=== PATIENT | female | born 1990 | race Caucasian/White ===

== ENCOUNTER 2018-04-01 09:37 | Emergency (ER) | payer BC ==
[~2018-04-01] VITALS: Ht 144.8 cm; Wt 60.3 kg
[2018-04-01 09:40] VITALS: BP 124/74
--- NOTE | 2018-04-01 10:02 | ED.ADGEN ---
Adult General Chief Complaint Chief Complaint "My dog jumped onto my stomach at 5:30 this morning and I'm just worried something happened to the baby" HPI HPI Patient is a 28 year old female who presents with suprapubic abdominal pain that started at 5:30 AM after her pit bull jumped onto her stomach. She also admits to associated nausea. She states that she is getting very anxious because she has had 2 miscarriages in the past. She denies any fevers, chills, dysuria, flank pain, right lower quadrant pain, anorexia, vomiting, chest pain, shortness of breath, pleuritic pain, rashes. Review of Systems Review of Systems All other systems were reviewed and found to be within normal limits, except as documented in this note. Family History Family History noncontributory Allergies Allergies Allergies Coded Allergies Type Severity Reaction Last Updated Verified latex Allergy Intermediate 04/01/18 Yes Physical Exam Physical Exam GENERAL: Awake, alert, no acute distress HEAD/EYES: Normocephalic, EOMI ENT Airway patent, mucous membranes moist NECK: Supple, no meningismus, no swelling RESP: No respiratory distress, symmetrical expansion CV: Normal peripheral perfusion ABD/GI: Non distended, nontender to palpation in the right lower quadrant, negative Carroll sign, no rebound, no tenderness SKIN: Warm, dry NEURO: Normal motor observed PSYCH: Cooperative, appropriate affect, anxious appearing EKG EKG [] Radiology/Procedures Radiology/Procedures Bedside ultrasound performed and interpreted by me reveals movement within the uterus as well as heartbeat present at around 160 bpm Patient states that she feels much better just knowing that the heart is seen We discussed that we do not feel there is an indication for labs or urinalysis. She states that she will follow-up with [facility]. Course & Med Decision Making Course & Med Decision Making Pertinent Labs and Imaging studies reviewed. (See chart for details) [] Final Impression Final Impression Abdominal pain in Dragon Disclaimer Dragon Disclaimer This electronic medical record was generated, in whole or in part, using a voice recognition dictation system. ANGELINA CESAR DO Apr 01, 2018 10:02
== END 2018-04-01 10:08 | disposition home or self-care (01) ==
LOC: ER 09:37
DX: O26.891 Other specified pregnancy related conditions, first trimester (principal); R10.31 Right lower quadrant pain; Z3A.10 10 weeks gestation of pregnancy; Z91.040 Latex allergy status
CPT/HCPCS: 99284

== ENCOUNTER 2018-06-05 12:39 | Emergency (ER) | payer BC ==
[2018-06-05 13:00] VITALS: BP 104/68
--- NOTE | 2018-06-05 13:42 | PHYS DOC ---
Past History Past Medical History: No Pertinent History Past Surgical History: Other Alcohol Use: None Drug Use: None Adult General Chief Complaint Chief Complaint: VAGINAL PROBLEM HPI HPI 28-year-old female 19 weeks presents with 2 day history of vaginal itching and discharge. The patient was recently treated for UTI with Keflex. She states that she started to have itching and a thick whitish discharge yesterday and it has increased significantly today. The itching is very intense. Patient has not had a yeast infection in the past. She was unsure how she could treat this and she is and she wanted make sure her urinary tract infection was resolved. She denies dysuria, urinary frequency, fever or chills. She has a monogamous relationship. Review of Systems Review of Systems Constitutional: Denies fever or chills [] Eyes: Denies change in visual acuity, redness, or eye pain [] HENT: Denies nasal congestion or sore throat [] Respiratory: Denies cough or shortness of breath [] Cardiovascular: No additional information not addressed in HPI [] GI: Denies abdominal pain, nausea, vomiting, bloody stools or diarrhea [] : Vaginal pruritus and thick discharge[] Musculoskeletal: Denies back pain or joint pain [] Integument: Denies rash or skin lesions [] Neurologic: Denies headache, focal weakness or sensory changes [] Endocrine: Denies polyuria or polydipsia [] All other systems were reviewed and found to be within normal limits, except as documented in this note. Allergies Allergies Allergies Coded Allergies Type Severity Reaction Last Updated Verified latex Allergy Intermediate 04/01/18 Yes Physical Exam Physical Exam Constitutional: Well developed, well nourished, no acute distress, non-toxic appearance. [] HENT: Normocephalic, atraumatic, bilateral external ears normal, oropharynx moist, no oral exudates, nose normal. [] Eyes: PERRLA, EOMI, conjunctiva normal, no discharge. [] Neck: Normal range of motion, no tenderness, supple, no stridor. [] Cardiovascular:Heart rate regular rhythm, no murmur [] Lungs & Thorax: Bilateral breath sounds clear to auscultation [] Abdomen: Bowel sounds normal, soft, no tenderness, no masses, no pulsatile masses. [] Skin: Warm, dry, no erythema, no rash. [] Back: No tenderness, no CVA tenderness. [] Extremities: No tenderness, no cyanosis, no clubbing, ROM intact, no edema. [] Neurologic: Alert and oriented X 3, normal motor function, normal sensory function, no focal deficits noted. [] Psychologic: Affect normal, judgement normal, mood normal. : Shaved pubic care, normal exterior exam. Thick white discharge in the vaginal vault. Pain with exam. [] Current Patient Data Vital Signs Vital Signs Date Time Temp Pulse Resp B/P (MAP) Pulse Ox O2 Delivery O2 Flow Rate FiO2 06/05/18 13:00 98.4 99 20 104/68 (80) 99 Room Air EKG EKG [] Radiology/Procedures Radiology/Procedures [] Course & Med Decision Making Course & Med Decision Making Pertinent Labs and Imaging studies reviewed. (See chart for details) The patient is positive for yeast and Trichomonas. I will treat her with 2 g tonight is all in the ED as a single dose. She will do topical miconazole therapy at home for the vaginal yeast infection. I have given her prescription for an additional 2 g dose for her . She is stable for discharge at this time. She'll follow up with her [facility] [employer] as regularly scheduled. [] Dragon Disclaimer Dragon Disclaimer This electronic medical record was generated, in whole or in part, using a voice recognition dictation system. Departure Departure: Referrals: PCP,LINH (PCP) Scripts Metronidazole (METRONIDAZOLE) 500 Mg Tablet 2000 MG PO 1X for infection, #4 TAB Prov: SANTI CELAYA DO 06/05/18 Miconazole Nitrate (MICONAZOLE 7) 100 Mg Supp.vag 100 MG VG QHS for infection for 7 Days, #7 SUPP Prov: SANTI CELAYA DO 06/05/18 SANTI CELAYA DO Jun 05, 2018 13:42
[2018-06-05 13:55] LABS: BILIRUBIN,URINE NEG (NEG); CLARITY,URINE TURBID; COLOR,URINE YELLOW; GLUCOSE,URINE NEG (NEG)
[2018-06-05 13:56] LABS: BACTERIA,URINE MOD /HPF (0-FEW); NITRITE,URINE NEG (NEG); RBC,URINE OCC /HPF (0-2); SQUAMOUS EPITHELIAL CELL,UR MANY /LPF; TRICHOMONAS,URINE PRESENT; UROBILINOGEN,URINE 0.2 mg/dL (0.2 mg/dL); YEAST,URINE PRESENT /HPF
[2018-06-05] MEDS ORDERED: ONDANSETRON ODT 4 MG TAB.RAPDIS PO ONE (15:00)
[2018-06-05] MEDS ORDERED: MICO100S VG (15:01)
[2018-06-05] MEDS ORDERED: metroNIDAZOLE 500 MG TABLET PO ONE (15:30)
[2018-06-05] MEDS ORDERED: METR-84 PO (15:49)
[2018-06-07 13:14] LABS: CHLAMYDIA PROBE Negative (Negative)
== END 2018-06-05 15:45 | disposition home or self-care (01) ==
LOC: ER 12:39
DX: O98.812 Other maternal infectious and parasitic diseases complicating pregnancy, second trimester (principal); A59.01 Trichomonal vulvovaginitis; B37.3 Candidiasis of vulva and vagina; Z91.040 Latex allergy status; Z3A.19 19 weeks gestation of pregnancy
CPT/HCPCS: 36415; 81001; 87086; 87491; 87591; 99283; Q0111; Q0162

== ENCOUNTER 2019-07-23 13:36 | Emergency (ER) | payer BC ==
[~2019-07-23] VITALS: Ht 144.8 cm; Wt 60.9 kg
[~2019-07-23 13:36] MED LIST: METR-34 PO; MICO100S VG
[2019-07-23] MEDS ORDERED: ONDANSETRON PF 4 MG/2 ML VIAL. ONE (13:59)
[2019-07-23] MEDS ORDERED: ONDANSETRON PF 4 MG/2 ML VIAL. IVP ONE (14:00)
[2019-07-23] MEDS ORDERED: IV NORMAL SALINE 1,000ML 1,000 ML IV ONE (14:00)
[2019-07-23] MEDS ORDERED: IV NORMAL SALINE 1,000ML 1,000 ML IV SCH (14:04)
[2019-07-23 14:11] LABS: BASO # 0.1 x10^3/uL (0.0-0.2); BASO % 1 % (0-3); EOS # 0.4 x10^3/uL (0.0-0.7); EOS % 3 % (0-3); HEMATOCRIT 41.5 % (36.0-47.0); HEMOGLOBIN 13.3 g/dL (12.0-15.5); LYMPH # 2.3 x10^3/uL (1.0-4.8); LYMPH % 17 % (24-48); MEAN CORPUSCULAR HEMOGLOBIN 24 pg (25-35); MEAN CORPUSCULAR HGB CONC 32 g/dL (31-37); MEAN CORPUSCULAR VOLUME 76 fL (79-100); MONO # 0.6 x10^3/uL (0.0-1.1); MONO % 4 % (0-9); NEUT # 10.3 x10^3uL (1.8-7.7); NEUT % 75 % (31-73); PLATELET COUNT 268 x10^3/uL (140-400); RED BLOOD COUNT 5.47 x10^6/uL (3.50-5.40); RED CELL DISTRIBUTION WIDTH 19.5 % (11.5-14.5); WHITE BLOOD COUNT 13.6 x10^3/uL (4.0-11.0)
[2019-07-23] MEDS ORDERED: KETOROLAC 30 MG/ML VIAL. IVP ONE (14:15)
[2019-07-23 14:17] LABS: CALCIUM 8.5 mg/dL (8.5-10.1); CREATININE 0.7 mg/dL (0.6-1.0); GFR 100.4; POTASSIUM 4.1 mmol/L (3.5-5.1)
[2019-07-23 14:24] LABS: ALBUMIN 3.5 g/dL (3.4-5.0); ALBUMIN/GLOBULIN RATIO 0.8 (1.0-1.7); TOTAL BILIRUBIN 0.2 mg/dL (0.2-1.0); TOTAL PROTEIN 7.8 g/dL (6.4-8.2)
[2019-07-23] MEDS ORDERED: IOHEXOL 300 MG/ML 75 ML VIAL. IV ONE (15:00)
[2019-07-23 16:41] VITALS: BP 85/45
--- NOTE | 2019-07-23 17:04 | PHYS DOC ---
Past History Past Medical History: No Pertinent History Past Surgical History: , Tubal ligation Alcohol Use: None Drug Use: None Adult General Chief Complaint Chief Complaint: ABDOMINAL PAIN HPI HPI Patient is a 29-year-old female who presents with complaint of abdominal pain that started this morning. Patient states the pain is primarily on the left side and she rates pain at a 12 out of 10. Patient states that this is much worse than childbirth. She states that she has been nauseated but has not had any vomiting. She does indicate that she's had one loose stool today. She denies any fever. She does indicate that she has a decreased appetite. Patient states that pain is worsened with movement and palpation of her abdomen. She states that nothing is improving her symptoms.[] Review of Systems Review of Systems Constitutional: Denies fever or chills [] Respiratory: Denies cough or shortness of breath [] Cardiovascular: No additional information not addressed in HPI [] GI: Complains of abdominal pain with nausea. Denies vomiting or diarrhea [] : Denies dysuria or hematuria [] Neurologic: Denies headache, focal weakness or sensory changes [] All other systems were reviewed and found to be within normal limits, except as documented in this note. Current Medications Current Medications Current Medications Medications (Trade) Dose Ordered Sig/[facility] Start Time Stop Time Status Last Admin Dose Admin Iohexol (Omnipaque 300 Mg/ml) 75 ml 1X ONCE 07/23/19 15:00 07/23/19 15:01 DC 07/23/19 15:00 75 ML Ketorolac Tromethamine (Toradol 30mg Vial) 30 mg 1X ONCE 07/23/19 14:15 07/23/19 14:16 DC 07/23/19 14:14 30 MG Ondansetron HCl (Zofran) 4 mg STK-MED ONCE 07/23/19 13:59 07/23/19 13:59 DC Sodium Chloride 1,000 ml @ 1,000 mls/hr Q1H 07/23/19 14:04 07/23/19 15:03 DC 07/23/19 15:00 1,000 MLS/HR Allergies Allergies Allergies Coded Allergies Type Severity Reaction Last Updated Verified latex Allergy Intermediate 04/01/18 Yes Physical Exam Physical Exam Constitutional: Well developed, well nourished, no acute distress, non-toxic appearance. [] HENT: Normocephalic, atraumatic, bilateral external ears normal, oropharynx moist, no oral exudates, nose normal. [] Eyes: PERRLA, EOMI, conjunctiva normal, no discharge. [] Neck: Normal range of motion, no tenderness, supple, no stridor. [] Cardiovascular: Regular rate and rhythm[] Lungs & Thorax: Bilateral breath sounds clear to auscultation [] Abdomen: Bowel sounds normal, soft, with moderate tenderness to palpation in the left upper and left lower quadrants. [] Skin: Warm, dry, no erythema, no rash. [] Extremities: No tenderness, no cyanosis, no clubbing, ROM intact, no edema. [] Neurologic: Alert and oriented X 3, no focal deficits noted. [] Current Patient Data Vital Signs Vital Signs Date Time Temp Pulse Resp B/P (MAP) Pulse Ox O2 Delivery O2 Flow Rate FiO2 07/23/19 13:36 98.4 83 24 100 Room Air Lab Results Laboratory Tests Test 07/23/19 13:49 White Blood Count 13.6 x10^3/uL (4.0-11.0) H Red Blood Count 5.47 x10^6/uL (3.50-5.40) H Hemoglobin 13.3 g/dL (12.0-15.5) Hematocrit 41.5 % (36.0-47.0) Mean Corpuscular Volume 76 fL (79-100) L Mean Corpuscular Hemoglobin 24 pg (25-35) L Mean Corpuscular Hemoglobin Concent 32 g/dL (31-37) Red Cell Distribution Width 19.5 % (11.5-14.5) H Platelet Count 268 x10^3/uL (140-400) Neutrophils (%) (Auto) 75 % (31-73) H Lymphocytes (%) (Auto) 17 % (24-48) L Monocytes (%) (Auto) 4 % (0-9) Eosinophils (%) (Auto) 3 % (0-3) Basophils (%) (Auto) 1 % (0-3) Neutrophils # (Auto) 10.3 x10^3uL (1.8-7.7) H Lymphocytes # (Auto) 2.3 x10^3/uL (1.0-4.8) Monocytes # (Auto) 0.6 x10^3/uL (0.0-1.1) Eosinophils # (Auto) 0.4 x10^3/uL (0.0-0.7) Basophils # (Auto) 0.1 x10^3/uL (0.0-0.2) Sodium Level 141 mmol/L (136-145) Potassium Level 4.1 mmol/L (3.5-5.1) Chloride Level 106 mmol/L (98-107) Carbon Dioxide Level 26 mmol/L (21-32) Anion Gap 9 (6-14) Blood Urea Nitrogen 11 mg/dL (7-20) Creatinine 0.7 mg/dL (0.6-1.0) Estimated GFR (Cockcroft-Gault) 100.4 BUN/Creatinine Ratio 16 (6-20) Glucose Level 97 mg/dL (70-99) Calcium Level 8.5 mg/dL (8.5-10.1) Total Bilirubin 0.2 mg/dL (0.2-1.0) Aspartate Amino Transferase (AST) 15 U/L (15-37) Alanine Aminotransferase (ALT) 23 U/L (14-59) Alkaline Phosphatase 83 U/L (46-116) Total Protein 7.8 g/dL (6.4-8.2) Albumin 3.5 g/dL (3.4-5.0) Albumin/Globulin Ratio 0.8 (1.0-1.7) L Lipase 104 U/L (73-393) EKG EKG [] Radiology/Procedures Radiology/Procedures [] Impressions: PROCEDURE: CT ABD PELV W/ IV CONTRST ONLY Exam: CT abdomen and pelvis with contrast INDICATION: Left-sided abdominal pain TECHNIQUE: Sequential axial images through the abdomen and pelvis obtained following the administration of 75 mL of Omni 300 IV contrast. Sagittal and coronal reformatted images were reconstructed from the axial data and reviewed. Comparisons: None FINDINGS: Heart size is normal. No pericardial effusion. Strandy opacities at dependent portion lungs likely representing atelectasis. No pleural effusion. Liver, spleen, pancreas and gallbladder are unremarkable. Kidneys demonstrate symmetric enhancement. No perinephric inflammation or hydronephrosis. No renal or ureteral calculi are identified. Bladder is partially distended and appears thin-walled. Uterus is nonenlarged. IUD is noted within the uterus. At the right adnexa there is a 4.3 cm cystic solid lesion, likely ovarian in etiology. Small amount of free fluid is noted within the pelvis. Mild bowel wall thickening is noted involving distal loops of small bowel in the pelvis with mucosal hyperenhancement. Remainder of the large and small bowel are unremarkable. Appendix is normal. No free intra-abdominal air. Abdominal aorta has a normal course and caliber. Abdominal vasculature is patent. No enlarged abdominal lymph nodes are identified. No suspicious osseous lesions or acute fractures. IMPRESSION: 1. Moderate length segment of bowel wall thickening and enhancement involving the distal small bowel, favored represent enteritis. This may be infectious or inflammatory in etiology. 2. Cystic and solid lesion in the right adnexa measuring 4.3 cm likely representing ovary with follicular change. This is not completely evaluated on CT and if of clinical concern ultrasound would better evaluate. Exposure: One or more of the following in the visualized dose reduction techniques were utilized for this examination: 1. Automated exposure control 2. Adjustment of the MA and/or KV according to patient size 3. Use of iterative of reconstructive technique Electronically signed by: Perico Luis MD (07/23/2019 5:25 PM) [place] [id number] DICTATED AND SIGNED BY: PERICO LUIS MD DATE: 07/23/191724 CC: ERIN MURRY Jr. DO; PCP,NO ~ Course & Med Decision Making Course & Med Decision Making Pertinent Labs and Imaging studies reviewed. (See chart for details) [] Dragon Disclaimer Dragon Disclaimer This electronic medical record was generated, in whole or in part, using a voice recognition dictation system. Departure Departure: Impression: Primary Impression: Enteritis Disposition: HOME, SELF-CARE Condition: STABLE Referrals: PCP,NO (PCP) Patient Instructions: Viral Gastroenteritis Scripts Ondansetron (ONDANSETRON ODT) 4 Mg Tab.rapdis 1 TAB PO PRN Q6-8HRS PRN for NAUSEA, #12 TAB Prov: ERIN MURRY Jr. DO 07/23/19 Hydrocodone Bit/Acetaminophen (NORCO 5-325 TABLET) 1 Each Tablet 1 TAB PO PRN Q6HRS PRN for PAIN, #12 TAB 0 Refills Prov: ERIN MURRY Jr. DO 07/23/19 Metronidazole (FLAGYL) 500 Mg Tablet 1 TAB PO TID for infection, #30 TAB Prov: ERIN MURRY Jr. DO 07/23/19 ERIN MURRY Jr. DO Jul 23, 2019 17:04
--- NOTE | 2019-07-23 17:28 | RAD ---
Exam: CT abdomen and pelvis with contrast INDICATION: Left-sided abdominal pain TECHNIQUE: Sequential axial images through the abdomen and pelvis obtained following the administration of 75 mL of Omni 300 IV contrast. Sagittal and coronal reformatted images were reconstructed from the axial data and reviewed. Comparisons: None FINDINGS: Heart size is normal. No pericardial effusion. Strandy opacities at dependent portion lungs likely representing atelectasis. No pleural effusion. Liver, spleen, pancreas and gallbladder are unremarkable. Kidneys demonstrate symmetric enhancement. No perinephric inflammation or hydronephrosis. No renal or ureteral calculi are identified. Bladder is partially distended and appears thin-walled. Uterus is nonenlarged. IUD is noted within the uterus. At the right adnexa there is a 4.3 cm cystic solid lesion, likely ovarian in etiology. Small amount of free fluid is noted within the pelvis. Mild bowel wall thickening is noted involving distal loops of small bowel in the pelvis with mucosal hyperenhancement. Remainder of the large and small bowel are unremarkable. Appendix is normal. No free intra-abdominal air. Abdominal aorta has a normal course and caliber. Abdominal vasculature is patent. No enlarged abdominal lymph nodes are identified. No suspicious osseous lesions or acute fractures. IMPRESSION: 1. Moderate length segment of bowel wall thickening and enhancement involving the distal small bowel, favored represent enteritis. This may be infectious or inflammatory in etiology. 2. Cystic and solid lesion in the right adnexa measuring 4.3 cm likely representing ovary with follicular change. This is not completely evaluated on CT and if of clinical concern ultrasound would better evaluate. Exposure: One or more of the following in the visualized dose reduction techniques were utilized for this examination: 1. Automated exposure control 2. Adjustment of the MA and/or KV according to patient size 3. Use of iterative of reconstructive technique Electronically signed by: Marianela Tineo MD (07/23/2019 5:25 PM) [id number]
[2019-07-23 17:59] LABS: PREG TEST PT QUAL NEGATIVE (NEG)
[2019-07-23] MEDS ORDERED: METR500T PO (18:03)
[2019-07-23] MEDS ORDERED: ONDA4TAB12 PO (18:03)
[2019-07-23] MEDS ORDERED: HYDR-3165 PO (18:03)
[2019-07-23] MEDS ORDERED: PROM25TA10 PO (18:09)
== END 2019-07-23 18:14 | disposition home or self-care (01) ==
LOC: ER 13:36
DX: K52.9 Noninfective gastroenteritis and colitis, unspecified (principal); Z98.890 Other specified postprocedural states; Z98.51 Tubal ligation status; Z91.040 Latex allergy status
CPT/HCPCS: 36415; 74177; 80053; 83690; 84703; 85025; 96361; 96374; 96375; 99285; J1885; J2405; J3010; Q9967; J7030

== ENCOUNTER 2020-04-03 21:18 | Emergency (ER) | payer BC ==
[~2020-04-03] VITALS: Ht 144.8 cm; Wt 57.7 kg
[2020-04-03 21:18] VITALS: BP 119/82
[~2020-04-03 21:18] MED LIST changes: +HYDR-3165 PO; +METR500T PO; +ONDA4TAB12 PO; +PROM25TA10 PO
[2020-04-03] MEDS ORDERED: CLINDAMYCIN HCL 150 MG CAPSULE PO ONE (22:15)
[2020-04-03] MEDS ORDERED: LIDOCAINE 2% VISCOUS 15 ML SOLUTION. SWSW ONE (22:15)
--- NOTE | 2020-04-03 22:20 | PHYS DOC ---
Past History Past Medical History: No Pertinent History Past Surgical History: , Tubal ligation Alcohol Use: None Drug Use: None General Adult EDM: Chief Complaint: DENTAL PROBLEM HPI: HPI: 30-year-old female presents with right lower dental pain. He has had exacerbation of this pain over the last 2 days. She has a lot of swelling in the right cheek and just cannot take it anymore. She knows it is infected and is concerned about an abscess. It hurts some bad that she is unable to sleep. She does not have any dental insurance. She denies fever or chills. Review of Systems: Review of Systems: Constitutional: Denies fever or chills Eyes: Denies change in visual acuity HENT: Denies nasal congestion or sore throat. Dental pain. Respiratory: Denies cough or shortness of breath Cardiovascular: Denies chest pain or edema GI: Denies abdominal pain, nausea, vomiting, bloody stools or diarrhea : Denies dysuria Musculoskeletal: Denies back pain or joint pain Integument: Denies rash Neurologic: Denies headache, focal weakness or sensory changes Endocrine: Denies polyuria or polydipsia Lymphatic: Denies swollen glands Psychiatric: Denies depression or anxiety Heart Score: Risk Factors: Risk Factors: DM, Current or recent (<one month) smoker, HTN, HLP, family history of CAD, obesity. Risk Scores: Score 0 - 3: 2.5% MACE over next 6 weeks - Discharge Home Score 4 - 6: 20.3% MACE over next 6 weeks - Admit for Clinical Observation Score 7 - 10: 72.7% MACE over next 6 weeks - Early Invasive Strategies Current Medications: Current Meds: Current Medications Medications (Trade) Dose Ordered Sig/[facility] Start Time Stop Time Status Last Admin Dose Admin Lidocaine HCl (Viscous Lidocaine) 15 ml 1X ONCE 04/03/20 22:15 04/03/20 22:16 UNV Allergies: Allergies: Allergies Coded Allergies Type Severity Reaction Last Updated Verified latex Allergy Intermediate 04/01/18 Yes Physical Exam: PE: Constitutional: Well developed, well nourished, no acute distress, non-toxic appearance. [] HENT: Normocephalic, atraumatic, bilateral external ears normal, nose normal. Multiple cavities, swollen right cheek, tenderness of the right lower gums [] Eyes: PERRLA, EOMI, conjunctiva normal, no discharge. [] Neck: Normal range of motion, no tenderness, supple, no stridor. [] Cardiovascular:Heart rate regular rhythm, no murmur [] Lungs & Thorax: Bilateral breath sounds clear to auscultation [] Abdomen: Bowel sounds normal, soft, no tenderness, no masses, no pulsatile masses. [] Skin: Warm, dry, no erythema, no rash. [] Back: No tenderness, no CVA tenderness. [] Extremities: No tenderness, no cyanosis, no clubbing, ROM intact, no edema. [] Neurologic: Alert and oriented X 3, normal motor function, normal sensory function, no focal deficits noted. [] Psychologic: Affect normal, judgement normal, mood normal. [] EKG: EKG: [] Radiology/Procedures: Radiology/Procedures: [] Course & Med Decision Making: Course & Med Decision Making Pertinent Labs and Imaging studies reviewed. (See chart for details) I pretreated the patient's dental pain with viscous lidocaine topically. This allowed me to inject 2 cc of 1% lidocaine with epinephrine. She had good anesthesia of the lower part of the right teeth. I then took an 11 blade and made a small incision to deflate her abscess. There was blood return. No obvious pus. We gave the patient 3 mg of clindamycin in the ED. I discharge her with a prescription for the same for 7 days. She will see a dentist as soon as possible to have this tooth fully extracted. She stable for discharge at this time. [] Blayne Disclaimer: Blayne Disclaimer: This electronic medical record was generated, in whole or in part, using a voice recognition dictation system. Departure Departure: Impression: Primary Impression: Infected dental caries Disposition: HOME/RESIDENCE PRIOR TO ADM Condition: STABLE Referrals: PCP,NO (PCP) Patient Instructions: Dental Abscess Scripts Hydrocodone Bit/Acetaminophen (NORCO 5-325 TABLET) 1 Each Tablet 1 TAB PO PRN Q6HRS PRN for PAIN, #10 TAB 0 Refills Prov: SANTI CELAYA DO 04/03/20 Clindamycin Hcl (CLINDAMYCIN HCL) 300 Mg Capsule 1 CAP PO TID for dental infection, #21 CAP Prov: SANTI CELAYA DO 04/03/20 SANTI CELAYA DO Apr 03, 2020 22:20
[2020-04-03] MEDS ORDERED: HYDR-3165 PO (23:26)
[2020-04-03] MEDS ORDERED: CLIN300C8 PO (23:26)
== END 2020-04-04 00:20 | disposition home or self-care (01) ==
LOC: ER 21:18
DX: K02.9 Dental caries, unspecified (principal); K04.7 Periapical abscess without sinus; Z91.040 Latex allergy status
CPT/HCPCS: 41800; 99283; 99284

== ENCOUNTER 2020-08-08 18:31 | Emergency (ER) | payer BC ==
[~2020-08-08] VITALS: Ht 144.8 cm; Wt 56.4 kg
[~2020-08-08 18:31] MED LIST changes: +CLIN300C9 PO
[2020-08-08 18:38] VITALS: BP 117/63
--- NOTE | 2020-08-08 18:56 | PHYS DOC ---
Past History Past Medical History: No Pertinent History, UTI Past Medical History Hx HPV Past Surgical History: , Tubal ligation Alcohol Use: None Drug Use: None General Adult EDM: Chief Complaint: PAIN ON URINATION HPI: HPI: ".. I feel like I got a UTI.. I having pain when I urinate.. It feels like when I had UTI before..".. It been going on over a week.." Patient is a 30 year old female who presents with above hx and complaints of dysuria. Patient states the dysuria is been somewhat intermittent for the last week or so. Was seen much worse today. Patient states symptoms are similar to prior urinary tract infection. Patient denies any history of sick ill contacts. Patient denies any vaginal discharge. Patient denies any rash in the vaginal area. No history immunosuppression. No history of travel. Review of Systems: Review of Systems: Constitutional: Denies fever or chills Eyes: Denies change in visual acuity HENT: Denies nasal congestion or sore throat Respiratory: Denies cough or shortness of breath Cardiovascular: Denies chest pain or edema GI: Denies abdominal pain, nausea, vomiting, bloody stools or diarrhea : Complains of dysuria . History of intermittent urinary retention Musculoskeletal: Denies back pain or joint pain Integument: Denies rash Neurologic: Denies headache, focal weakness or sensory changes Endocrine: Denies polyuria or polydipsia Lymphatic: Denies swollen glands Psychiatric: Denies depression or anxiety Family History: Family History: Noncontributory Current Medications: Current Meds: See nursing for home meds Allergies: Allergies: Allergies Coded Allergies Type Severity Reaction Last Updated Verified latex Allergy Intermediate 04/01/18 Yes Physical Exam: PE: Constitutional: Well developed, well nourished, moderate acute distress, non- toxic appearance. [] HENT: Normocephalic, atraumatic, bilateral external ears normal, oropharynx moist, no oral exudates, nose normal. [] Eyes: PERRLA, EOMI, conjunctiva normal, no discharge. [] Neck: Normal range of motion, no tenderness, supple, no stridor. [] Cardiovascular:Heart rate regular rhythm, no murmur [] Lungs & Thorax: Bilateral breath sounds clear to auscultation [] Abdomen: Bowel sounds normal, soft, mild suprapubic tenderness, no masses, no pulsatile masses. Declines pelvic exam at this time. Old surgery scar Skin: Warm, dry, no erythema, no rash. [] Back: No tenderness, no CVA tenderness. [] Extremities: No tenderness, no cyanosis, no clubbing, ROM intact, no edema. [] Neurologic: Alert and oriented X 3, normal motor function, normal sensory function, no focal deficits noted. [] Psychologic: Affect anxious, judgement normal, mood normal. [] EKG: EKG: [] Radiology/Procedures: Radiology/Procedures: [] Heart Score: Risk Factors: Risk Factors: DM, Current or recent (<one month) smoker, HTN, HLP, family history of CAD, obesity. Risk Scores: Score 0 - 3: 2.5% MACE over next 6 weeks - Discharge Home Score 4 - 6: 20.3% MACE over next 6 weeks - Admit for Clinical Observation Score 7 - 10: 72.7% MACE over next 6 weeks - Early Invasive Strategies Course & Med Decision Making: Course & Med Decision Making Pertinent Labs and Imaging studies reviewed. (See chart for details) Discussed urinary results with patient. Discussed options of treatment. Patient elects to try a course of antibiotics. Patient push times he drinks. Patient follow-up primary care. Patient follow-up urinary cultures. Patient take Bactrim DS twice daily for 7 days. Recommend patient follow-up with urology and/or [facility] since history of urinary retention. Impression: 1. Dysuria 2. History of urinary retention [] Dragon Disclaimer: Dragon Disclaimer: This electronic medical record was generated, in whole or in part, using a voice recognition dictation system. Departure Departure: Referrals: PCP,NO (PCP) Scripts Sulfamethoxazole/Trimethoprim (BACTRIM DS TABLET) 1 Each Tablet 1 TAB PO BID for dysuria for 7 Days, #14 TAB 0 Refills Prov: CHING LOPEZ MD 08/08/20 Blayne Disclaimer This chart was dictated in whole or in part using Voice Recognition software in a busy, high-work load, and often noisy Emergency Department environment. It may contain unintended and wholly unrecognized errors or omissions. CHING LOPEZ MD Aug 08, 2020 18:56
[2020-08-08 19:23] LABS: BARBITURATES NEG (NEG); BENZODIAZEPINES NEG (NEG); CANNABINOIDS POS (NEG); COCAINE NEG (NEG); METHADONE NEG (NEG); OPIATES NEG (NEG); PHENCYCLIDINE NEG (NEG)
[2020-08-08 19:25] LABS: BILIRUBIN,URINE NEG (NEG); CLARITY,URINE CLEAR; COLOR,URINE YELLOW; GLUCOSE,URINE NEG (NEG)
[2020-08-08 19:26] LABS: BACTERIA,URINE FEW /HPF (0-FEW); NITRITE,URINE NEG (NEG); RBC,URINE RARE /HPF (0-2); SQUAMOUS EPITHELIAL CELL,UR FEW /LPF; WBC,URINE RARE /HPF (0-4)
[2020-08-08 19:27] LABS: AMPHETAMINE/METHAMPHETAMINE NEG (NEG)
[2020-08-08 19:36] LABS: U PREG PATIENT NEGATIVE (NEG)
[2020-08-08] MEDS ORDERED: SULF1TAB24 PO (20:14)
[2020-08-08] MEDS ORDERED: SMZ/TMP 800/160MG TABLET. PO ONE (20:15)
[2020-08-08] MEDS ORDERED: PHENAZOPYRIDINE 200 MG TABLET. PO ONE (20:15)
== END 2020-08-08 20:20 | disposition home or self-care (01) ==
LOC: ER 18:31
DX: R30.0 Dysuria (principal); Z87.440 Personal history of urinary (tract) infections; Z98.51 Tubal ligation status; Z98.890 Other specified postprocedural states; Z91.040 Latex allergy status
CPT/HCPCS: 36415; 80307; 81001; 81025; 99283

== ENCOUNTER 2021-04-11 23:24 | Emergency (ER) | payer BC ==
[~2021-04-11] VITALS: Ht 152.4 cm; Wt 60.0 kg
[~2021-04-11 23:24] MED LIST changes: +CLIN-95 PO; -CLIN300C9 PO; -MICO100S VG; +SULF1TAB24 PO; +[UNRECOGNIZED DRUG - CODE] VG
[2021-04-11 23:44] VITALS: BP 132/82
[2021-04-11] MEDS ORDERED: METOCLOPRAMIDE 10 MG TABLET ONE (23:55)
[2021-04-11] MEDS ORDERED: CLIN-95 PO (23:56)
--- NOTE | 2021-04-11 23:56 | PHYS DOC ---
Past History Past Medical History: No Pertinent History, UTI Additional Past Medical Histor: ulcers Past Surgical History: Other Alcohol Use: Occasionally Drug Use: None Adult General Chief Complaint Chief Complaint: DENTAL PROBLEM HPI HPI Patient is a 31-year-old female who presents with left lower wisdom tooth pain, 7 out of 10, sharp in nature has been going on for couple days. States she has an appointment with her dentist next week but the Tylenol she uses at home is not working. States she has not tried any ibuprofen or Orajel. Denies any pain or trouble swallowing. Denies any fevers, nausea or vomiting. Review of Systems Review of Systems Review of systems otherwise unremarkable except noted in HPI Allergies Allergies Allergies Coded Allergies Type Severity Reaction Last Updated Verified latex Allergy Intermediate 04/01/18 Yes Physical Exam Physical Exam Constitutional: Well developed, well nourished, no acute distress, non-toxic appearance. [] HENT: Normocephalic, atraumatic, bilateral external ears normal, oropharynx moist, no oral exudates, poor dentition generally, with probable Sabrina on the back molar and offset wisdom tooth, nose normal. [] Eyes: conjunctiva normal, no discharge. [] Neck: Normal range of motion, no tenderness, supple, no stridor, no lymphadenopathy. [] Neurologic: Alert and oriented X 3, normal motor function, normal sensory function, no focal deficits noted. [] Psychologic: Affect normal, judgement normal, mood normal. [] Current Patient Data Vital Signs Vital Signs Date Time Temp Pulse Resp B/P (MAP) Pulse Ox O2 Delivery O2 Flow Rate FiO2 04/11/21 23:44 98.0 91 22 132/82 (99) 98 Room Air EKG EKG [] Radiology/Procedures Radiology/Procedures [] Heart Score C/O Chest Pain: No Risk Factors: Risk Factors: DM, Current or recent (<one month) smoker, HTN, HLP, family history of CAD, obesity. Risk Scores: Risk Factors: DM, Current or recent (<one month) smoker, HTN, HLP, family history of CAD, obesity. Course & Med Decision Making Course & Med Decision Making Patient is a 31-year-old female presents with dental pain Vital signs not concerning. Physical exam noted above. Given pain medicine and started on antibiotics in the ED. Discussed pain management at home. Gave contact information for local free dentist and the emergency dentist. Advised to call the emergency dentist first thing Wednesday morning as they can usually get them in the same day and discuss filling versus root canal versus extraction. Gave return precautions to the ED. Patient grateful, verbalized understanding and agreed with plan of discharge. Dragon Disclaimer Dragon Disclaimer This electronic medical record was generated, in whole or in part, using a voice recognition dictation system. Departure Departure: Impression: Primary Impression: Pain, dental Disposition: HOME / SELF CARE / HOMELESS Condition: GOOD Referrals: PCP,LINH (PCP) IVELISSE MARTIN Patient Instructions: Dental Pain Additional Instructions: Thank you for coming into the emergency department tonight and allowing us to take care of you. Please read the attached information carefully to go over the things we discussed. Please begin a Tylenol, ibuprofen, Benadryl and Orajel regimen as we discussed and demonstrated in the emergency department. Please take your antibiotics as prescribed to prevent further infection which can cause pain. Please call the emergency dentist first thing Wednesday at [phone] first thing Wednesday morning if there is immediate need for being seen by dentist and evaluating for root canal versus extraction versus filling and pain management. Otherwise please keep your upcoming appointment with your dentist. Scripts Clindamycin Hcl (CLINDAMYCIN HCL) 300 Mg Capsule 1 CAP PO TID for dental pain for 7 Days, #21 CAP Prov: FELECIA ANTOINE MD 04/11/21 FELECIA ANTOINE MD Apr 11, 2021 23:56
[2021-04-12] MEDS ORDERED: CLINDAMYCIN HCL 150 MG CAPSULE PO ONE (00:30)
[2021-04-12] MEDS ORDERED: BENZOCAINE ONE 20% MUCOSAL SPRAY. MM (00:30)
[2021-04-12] MEDS ORDERED: oxyCODONE/APAP 5/325 1 TAB TABLET PO ONE (00:30)
[2021-04-12] MEDS ORDERED: IBUPROFEN 600 MG TABLET. PO ONE (00:30)
== END 2021-04-12 00:26 | disposition home or self-care (01) ==
LOC: ER 23:24
DX: K08.89 Other specified disorders of teeth and supporting structures (principal); Z87.440 Personal history of urinary (tract) infections; Z91.040 Latex allergy status
CPT/HCPCS: 99284-25

== ENCOUNTER 2021-08-04 15:07 | Emergency (ER) | payer BC ==
[~2021-08-04] VITALS: Ht 152.4 cm; Wt 60.0 kg
[2021-08-04 15:52] VITALS: BP 132/82
[2021-08-04] MEDS ORDERED: BUTALB/APAP/CAFEIN 50/325/40MG TABLET. PO ONE (16:45)
[2021-08-04] MEDS ORDERED: BUTA1TAB23 PO (16:52)
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
== END 2021-08-04 17:35 | disposition home or self-care (01) ==
LOC: ER 15:07
DX: S00.03XA Contusion of scalp, initial encounter (principal); F41.9 Anxiety disorder, unspecified; F32.9 Major depressive disorder, single episode, unspecified; F17.210 Nicotine dependence, cigarettes, uncomplicated; Z91.040 Latex allergy status; W22.8XXA Striking against or struck by other objects, initial encounter; Y93.89 Activity, other specified; Y92.89 Other specified places as the place of occurrence of the external cause; Y99.8 Other external cause status
CPT/HCPCS: 99283